=== PATIENT | female | born 1955 | race Caucasian/White ===

== ENCOUNTER 2017-09-15 11:18 | Emergency (ER) | payer BC ==
[~2017-09-15] VITALS: Wt 67.1 kg
[~2017-09-15 11:18] MED LIST: ATOR10TA65 PO; SYN15 PO
[2017-09-15 11:25] VITALS: Wt 67.1 kg
[2017-09-15 12:42] LABS: BASOPHIL # 0.1 10^3/ul (0.0-0.1); BASOPHILS % 1.4 % (0.0-2.0); EOSINOPHILS # 0.3 10^3/ul (0.0-0.5); EOSINOPHILS % 4.2 % (0.0-7.0); HEMATOCRIT 44.2 % (37.0-47.0); HEMOGLOBIN 15.2 g/dl (12.0-16.0); LYMPHOCYTES # 1.6 10^3/ul (0.8-2.9); LYMPHOCYTES % 25.9 % (15.0-51.0); MEAN CORPUSCULAR HEMOGLOBIN 30.6 pg (29.0-33.0); MEAN CORPUSCULAR HGB CONC 34.4 g/dl (32.0-37.0); MEAN CORPUSCULAR VOLUME 89.1 fl (82.0-101.0); MEAN PLATELET VOLUME 11.4 fl (7.4-10.4); MONOCYTE # 0.4 10^3/ul (0.3-0.9); MONOCYTES % 6.1 % (0.0-11.0); NEUTROPHIL # 3.9 10^3/ul (1.6-7.5); NEUTROPHILS % 62.1 % (39.0-77.0); PLATELET COUNT 209 10^3/UL (140-415); RED BLOOD COUNT 4.96 10^6/ul (4.20-5.40); RED CELL DISTRIBUTION WIDTH 12.7 % (11.5-14.5); WHITE BLOOD COUNT 6.3 10^3/ul (4.8-10.8)
--- NOTE | 2017-09-15 12:44 | RADRPT ---
PROCEDURE: CT Brain without contrast. CLINICAL INDICATION: Dizziness TECHNIQUE: A CT of the brain was performed on a [employer] CT scanner utilizing axial imaging f rom the skull base through the vertex without IV contrast. Multiplanar reformatted images were made . Images were reviewed on a PACS workstation. The CTDIvol is 44.63 mGy and the DLP is 720.23 mGycm . DICOM images are available. One of the following 3 dose reduction techniques were used during this CT examination: 1) Automated exposure control 2) Adjustment of the mA +/- kV according to patient size or 3) Use of iterative reconstruction technique COMPARISON: None available FINDINGS: There is no intracranial hemorrhage, mass effect, or midline shift. No extra-axial fluid collection is seen. The ventricles and sulci are age appropriate compatible with mild diffuse volume loss. The visualized scalp and calvarium are normal. The bilateral orbits are normal. The bilateral parana kareen sinuses, mastoid air cells and middle ear cavities are clear. IMPRESSION: 1. No evidence of acute intracranial hemorrhage, infarcts, or acute intracranial pathology. 2. Mild diffuse volume loss. RPTAT: HDC .Lily Miller MD, Date Time Electronically viewed and signed by .Lily Miller MD, on 09/15/2017 12:44 .C/
[2017-09-15 12:46] LABS: ADD UMIC YES; UR ASCORBIC ACID 40 mg/dL (NEGATIVE); UR BILIRUBIN (Dip) NEGATIVE (NEGATIVE); UR BLOOD (Dip) NEGATIVE (NEGATIVE); UR CLARITY CLEAR (CLEAR); UR COLOR YELLOW (YELLOW); UR GLUCOSE (Dip) NEGATIVE (NEGATIVE); UR KETONES (Dip) TRACE mg/dL (NEGATIVE); UR LEUKOCYTE ESTERASE (Dip) TRACE Leu/ul (NEGATIVE); UR NITRITE (Dip) NEGATIVE (NEGATIVE); UR RBC 0 /HPF (0-5); UR SPECIFIC GRAVITY (Dip) 1.015 (1.003-1.030); UR TOTAL PROTEIN (Dip) NEGATIVE (NEGATIVE); UR UROBILINOGEN (Dip) NEGATIVE (NEGATIVE)
--- NOTE | 2017-09-15 12:50 | RADRPT ---
PROCEDURE: XR Chest. CLINICAL INDICATION: chest pain TECHNIQUE: Single frontal view of the chest was obtained COMPARISON: None FINDINGS: The heart and mediastinum are within normal limits. There is no focal infiltrate. There is a 10 mm nodular opacity in the left lower lobe, likely repres ents a nipple shadow. There is no pleural effusion or pneumothorax. RPTAT: AA IMPRESSION: 10 mm nodular opacity in the left lower lobe likely represents a nipple shadow. Confirmation with ni pple marker and a repeat PA view is recommended. No focal infiltrate. .Parsih Mccallum MD, MD Date Time Electronically viewed and signed by .Parish Mccallum MD, on 09/15/2017 12:49 .S/
[2017-09-15 13:03] LABS: ALANINE AMINOTRANSFERASE 58 IU/L (13-69); ALBUMIN 4.4 g/dl (3.3-4.9); ALBUMIN/GLOBULIN RATIO 1.62; ALKALINE PHOSPHATASE 55 IU/L (42-121); ANION GAP 16 (8-16); ASPARTATE AMINO TRANSFERASE 34 IU/L (15-46); BLOOD UREA NITROGEN 13 mg/dl (7-20); CALCIUM 10.2 mg/dl (8.4-10.2); CARBON DIOXIDE 26 mmol/L (21-31); CHLORIDE 102 mmol/L (97-110); CREATININE 0.86 mg/dl (0.44-1.00); GLUCOSE 101 mg/dl (70-220); SODIUM 140 mmol/L (135-144); TOTAL PROTEIN 7.1 g/dl (6.1-8.1)
[2017-09-15 13:14] LABS: TROPONIN-I < 0.012 ng/ml (0.00-0.12)
[2017-09-15 14:44] VITALS: BP 142/70; PULSE 84; RESP 20; TEMP 98.3
--- NOTE | 2017-09-15 14:51 | ERD ---
ER Documentation Chief Complaint Chief Complaint cold symp x1 wk, bowden, nausea, l. arm tinglng since 1100 today, neg neuro trg HPI This is a 62-year-old female presents to the ER stating that about a week ago she felt as if she was going to get a cold, however he did not get anything and started feeling better throughout the weekend. Today patient began to feel dizziness described as the room is spinning, however not like her usual vertigo. She also complains of decreased hearing which started happening a week ago as well. Patient has been keeping track of her blood pressure states that he has been slightly elevated. She also complains of slight chest pressure , however he denies shortness of breath. Patient denies any head trauma or neck trauma. She denies any abdominal pain, leg pain, leg redness or swelling. He is typically healthy and works out 3 times a week and eats healthy. 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 ROS 12 point review of systems was done, all negative except per HPI. Medications Home Meds Reported Medications Levothyroxine Sodium* (Synthroid*) 150 Mcg Tablet, 150 MCG PO BEFORE BREAKFAST, #30 TAB 06/08/16 Atorvastatin Calcium (Atorvastatin Calcium) 10 Mg Tablet, 10 MG PO QHS, #30 TAB 06/08/16 Allergies Allergies: Coded Allergies: No Known Allergy (Unverified , 06/05/16) PMhx/Soc History of Surgery: Yes (appendectomy,colonoscopy) Anesthesia Reaction: No Hx Neurological Disorder: No Hx Respiratory Disorders: No Hx Cardiac Disorders: No Hx Psychiatric Problems: No Hx Miscellaneous Medical Probl: No Hx Alcohol Use: Yes (social) Hx Substance Use: No Hx Tobacco Use: Yes Smoking Status: Never smoker Physical Exam Vitals Vital Signs Date Time Temp Pulse Resp B/P Pulse Ox O2 Delivery O2 Flow Rate FiO2 09/15/17 11:25 97.9 80 20 184/86 100 Physical Exam GENERAL: The patient is well developed and appropriate for usual state of health , in no apparent distress. HEENT: Atraumatic. Conjunctivae are pink. Pupils equal, round, and reactive to light. Extraocular muscles are grossly intact. No nystagmus. Bilateral tympanic membranes are clear with no evidence of erythema, bulging or perforation. Some clear fluid in the TM's. NECK: C-spine is soft and supple. There is no cervical lymphadenopathy. CHEST: Clear to auscultation bilaterally. There are no rales, wheezes or rhonchi. HEART: Regular rate and rhythm. No murmurs, clicks, rubs or gallops. EXTREMITIES: Full range of motion. Grossly neurovascularly intact. NEURO: Alert and oriented. Cranial nerves II through XII are intact. Motor strength in all 4 extremities with 5/5 strength. Sensation grossly intact. Normal speech and gait. Negative Rhomberg. +2 DTRs. SKIN: There is no apparent rash or petechia. The skin is warm and dry. Result Diagram: 09/15/17 1210 09/15/17 1210 Results 24 hrs Laboratory Tests Test 09/15/17 12:10 White Blood Count 6.310^3/ul Red Blood Count 4.9610^6/ul Hemoglobin 15.2g/dl Hematocrit 44.2% Mean Corpuscular Volume 89.1fl Mean Corpuscular Hemoglobin 30.6pg Mean Corpuscular Hemoglobin Concent 34.4g/dl Red Cell Distribution Width 12.7% Platelet Count 86100^3/UL Mean Platelet Volume 11.4fl Neutrophils % 62.1% Lymphocytes % 25.9% Monocytes % 6.1% Eosinophils % 4.2% Basophils % 1.4% Nucleated Red Blood Cells % 0.0/100WBC Neutrophils # 3.910^3/ul Lymphocytes # 1.610^3/ul Monocytes # 0.410^3/ul Eosinophils # 0.310^3/ul Basophils # 0.110^3/ul Nucleated Red Blood Cells # 0.010^3/ul Urine Color YELLOW Urine Clarity CLEAR Urine pH 6.0 Urine Specific Wolf 1.015 Urine Ketones TRACEmg/dL Urine Nitrite NEGATIVEmg/dL Urine Bilirubin NEGATIVEmg/dL Urine Urobilinogen NEGATIVEmg/dL Urine Leukocyte Esterase TRACELeu/ul Urine Microscopic RBC 0/HPF Urine Microscopic WBC 3/HPF Urine Hemoglobin NEGATIVEmg/dL Urine Glucose NEGATIVEmg/dL Urine Total Protein NEGATIVEmg/dl Sodium Level 140mmol/L Potassium Level 4.0mmol/L Chloride Level 102mmol/L Carbon Dioxide Level 26mmol/L Anion Gap 16 Blood Urea Nitrogen 13mg/dl Creatinine 0.86mg/dl Glucose Level 101mg/dl Calcium Level 10.2mg/dl Total Bilirubin 1.0mg/dl Direct Bilirubin 0.00mg/dl Indirect Bilirubin 1.0mg/dl Aspartate Amino Transf (AST/SGOT) 34IU/L Alanine Aminotransferase (ALT/SGPT) 58IU/L Alkaline Phosphatase 55IU/L Troponin I < 0.012ng/ml Total Protein 7.1g/dl Albumin 4.4g/dl Globulin 2.70g/dl Albumin/Globulin Ratio 1.62 Procedures/MDM EKG 54bpm no ST elevation or t wave inversion. Differential Diagnosis includes but is not limited to; Benign positional vertigo , labyrinthitis, vertigo, MS, acoustic neuroma, arrhythmia, anemia, hypoglycemia , infection, dehydration. This is a 62-year-old female presents to the ER with dizziness, chest pain, left arm numbness. Is neurovascularly intact with no focal neurological deficits or weaknesses. Patient for stroke is low. Patient EKG was normal and her troponin was negative. Her heart score is 1 which puts her at very low risk for cardiac event. Suspicion for PE is low, she does not have any SOB, leg redness or swelling , has not traveled anywhere recently and does not have a hx of any recent surgery. She was examined by myself and by Dr. Palacio. Have some fluid to bilateral ears, may have eustachian tube disorder. She was offered a prescription for Flonase and Zyrtec, however patient states she can get it [id number]. He is to follow-up with her primary care doctor within 1-2 days return to ER sooner if symptoms worsen. Medical decision making shared with the patient she understands and agrees with plan. Departure Diagnosis: Primary Impression: Dizziness Condition: Stable Patient Instructions: Dizziness, Unk Cause Additional Instructions: Call your primary care doctor TOMORROW for an appointment during the next 1-2 days.See the doctor sooner or return here if your condition worsens before your appointment time. JUSTYN CHAUDHARY Sep 15, 2017 14:50
== END 2017-09-15 14:44 | disposition home or self-care (01) ==
LOC: FTE 11:18
DX: R42 Dizziness and giddiness (principal); Z87.891 Personal history of nicotine dependence
CPT/HCPCS: 36415; 70450; 71010; 80053; 81001; 84484; 85025; 93005